=== PATIENT | female | born 1960 | race Caucasian/White ===

== ENCOUNTER 2017-01-21 06:56 | Emergency (ER) | payer BC ==
[~2017-01-21] VITALS: Ht 170.1 cm; Wt 106.6 kg
[~2017-01-21 06:56] MED LIST: AMOXICILLIN250 MG PO; ATIVAN1 MG PO; BACTRIM DS 8001 TA1 PO; CIPRO250 MG PO; CIPROFLOXACIN500 MG PO; EFFEXOR37.5 MG PO; HYDROCODONE PO; IBUPROFEN200 M2 PO; MOTRIN800 MG PO; PAXIL10 MG PO; PAXIL20 MG PO; XANAX0.25 MG PO
[2017-01-21 07:40] LABS: BASO % 0.7 % (0.0-1.0); EOS # 0.4 10*3/uL (0.0-0.4); EOS % 6.6 % (1.0-4.0); HEMATOCRIT 40.3 % (37.0-47.0); HEMOGLOBIN 13.1 g/dl (12.0-16.0); LYMPH # 1.8 10*3/uL (1.3-4.4); LYMPH % 32.3 % (27.0-41.0); MEAN CELL VOLUME 87.8 fl (81.0-99.0); MEAN CORPUSCULAR HGB 28.5 pg (27.0-31.0); MEAN CORPUSCULAR HGB CONC 32.5 g/dl (33.0-37.0); MEAN PLATELET VOLUME 9.1 fl (9.6-12.3); MONO # 0.5 10*3/uL (0.1-1.0); MONO % 9.5 % (3.0-9.0); NEUT # 2.8 10*3/uL (2.3-7.9); NEUT % 50.7 % (47.0-73.0); PLATELET COUNT AUTOMATED 290 10*3/uL (130-400); RED BLOOD COUNT 4.59 10*6/uL (4.10-5.10); RED CELL DISTRI WIDTH 12.7 % (0-14.5); WHITE BLOOD COUNT 5.6 10*3/uL (4.8-10.8)
[2017-01-21 08:02] LABS: BILIRUBIN NEGATIVE (NEGATIVE); BLOOD 1+ (NEGATIVE); CLARITY CLEAR (CLEAR); COLOR YELLOW (YELLOW); GLUCOSE NEGATIVE (NEGATIVE); KETONE NEGATIVE (NEGATIVE); LEUKO ESTERASE 1+ (NEGATIVE); NITRITE NEGATIVE (NEGATIVE); PH 5.5 (5.0-9.0); SPECIFIC GRAVITY 1.025 (1.005-1.030); UROBILINOGEN 0.2 E.U./dl (0.2-1.0)
[2017-01-21 08:05] LABS: ALBUMIN 3.4 gm/dl (3.1-4.5); ALKALINE PHOSPHATASE 61 U/L (45-117); BUN 15 mg/dl (7-24); CHLORIDE 105 mmol/L (98-107); CREATININE 0.87 mg/dL (0.55-1.02); POTASSIUM 4.1 mmol/L (3.5-5.1); SGOT/AST 13 IU/L (3-35); SGPT/ALT 40 U/L (12-78); SODIUM 139 mmol/L (136-145); TOTAL PROTEIN 7.3 gm/dL (6.4-8.2)
[2017-01-21 08:19] LABS: BACTERIA TRACE; EPITHELIAL CELLS 18-20
== END 2017-01-21 08:40 | disposition home or self-care (01) ==
LOC: ED 06:56
PROVIDERS: Emergency Medicine
DX: R53.83 Other fatigue (principal); M54.9 Dorsalgia, unspecified; Z88.6 Allergy status to analgesic agent; Z87.891 Personal history of nicotine dependence

== ENCOUNTER 2018-04-20 15:22 | Emergency (ER) | payer BC ==
--- NOTE | ~2018-04-20 | EKG ---
[place] ELECTROCARDIOGRAM REPORT NAME: SMITA LIGHT UNIT #: [id number] ROOM: DOCTOR: EPIPHANY DRAFT REPORT BIRTHDATE: [birth year] [facility] Test Date: 2018-04-20 Test Time: 15:57:37 Pat Name: SMITA LIGHT Department: Room: Gender: F Investment Broker: April Willson : 1960 Requested By: TRAVON ORTEGA Order Number: [id number] Reading MD: Regine Van MD Measurements Intervals [place] Rate: 52 P: 40 NH: 177 QRS: -2 QRSD: 124 T: -8 QT: 441 QTc: 411 Interpretive Statements Sinus rhythm IVCD, consider atypical RBBB No previous ECG available for comparison Electronically Signed On 04-23-2018 4:33:04 PST by Regine Van MD CM:EKGRPT:ELECTROCARDIOGRAM REPORT [id number] TRAVON ORTEGA MD EPIPHDAO DRAFT REPORT TRAVON ORTEGA MD
[2018-04-20 16:00] LABS: BASO # 0.1 10*3/uL (0.0-0.1); BASO % 0.7 % (0.0-1.0); EOS # 0.4 10*3/uL (0.0-0.4); EOS % 5.9 % (1.0-4.0); HEMATOCRIT 43.2 % (37.0-47.0); HEMOGLOBIN 14.1 g/dl (12.0-16.0); LYMPH # 2.6 10*3/uL (1.3-4.4); LYMPH % 38.6 % (27.0-41.0); MEAN CELL VOLUME 87.8 fl (81.0-99.0); MEAN CORPUSCULAR HGB 28.7 pg (27.0-31.0); MEAN CORPUSCULAR HGB CONC 32.6 g/dl (33.0-37.0); MEAN PLATELET VOLUME 9.2 fl (9.6-12.3); MONO # 0.8 10*3/uL (0.1-1.0); MONO % 11.7 % (3.0-9.0); NEUT # 2.9 10*3/uL (2.3-7.9); PLATELET COUNT AUTOMATED 269 10*3/uL (130-400); RED BLOOD COUNT 4.92 10*6/uL (4.10-5.10); RED CELL DISTRI WIDTH 12.5 % (0-14.5); WHITE BLOOD COUNT 6.8 10*3/uL (4.8-10.8)
[2018-04-20 16:08] LABS: ACT PARTIAL THROMBO TIME 24.3 SECONDS (20.8-31.5)
[2018-04-20 16:19] LABS: ALBUMIN 3.5 gm/dl (3.1-4.5); ALKALINE PHOSPHATASE 67 U/L (45-117); BUN 14 mg/dl (7-24); CHLORIDE 104 mmol/L (98-107); CREATININE 0.92 mg/dL (0.55-1.02); POTASSIUM 4.2 mmol/L (3.5-5.1); SGOT/AST 19 IU/L (3-35); SGPT/ALT 31 U/L (12-78); SODIUM 139 mmol/L (136-145); TOTAL PROTEIN 7.7 gm/dL (6.4-8.2)
[2018-04-20 16:21] LABS: TROPONIN I < 0.015 ng/ml (<0.045)
[2018-04-20 16:23] LABS: BILIRUBIN NEGATIVE (NEGATIVE); BLOOD TRACE-INTACT (NEGATIVE); CLARITY SL CLOUDY (CLEAR); COLOR YELLOW (YELLOW); GLUCOSE NEGATIVE (NEGATIVE); KETONE NEGATIVE (NEGATIVE); LEUKO ESTERASE 1+ (NEGATIVE); NITRITE NEGATIVE (NEGATIVE); SPECIFIC GRAVITY 1.025 (1.005-1.030); UROBILINOGEN 0.2 E.U./dl (0.2-1.0)
[2018-04-20 16:34] LABS: RBC 0-2 rbc/hpf (0-2)
[2018-04-20 16:35] LABS: BACTERIA 2+
[2018-04-20] MEDS ORDERED: Meclizine25 MG PO (16:52)
== END 2018-04-20 16:57 | disposition home or self-care (01) ==
LOC: ED 15:22
PROVIDERS: Emergency Medicine
DX: R42 Dizziness and giddiness (principal); R00.1 Bradycardia, unspecified; Z88.6 Allergy status to analgesic agent

== ENCOUNTER 2020-01-17 18:22 | Emergency (ER) | payer BC ==
[~2020-01-17] VITALS: Ht 172.7 cm; Wt 113.4 kg
[~2020-01-17 18:22] MED LIST changes: +Meclizine25 MG PO
== END 2020-01-17 20:52 | disposition home or self-care (01) ==
LOC: ED 18:22
DX: M25.532 Pain in left wrist (principal); Z88.8 Allergy status to other drugs, medicaments and biological substances; Z79.899 Other long term (current) drug therapy

== ENCOUNTER 2021-10-08 19:00 | Emergency (ER) | payer BC | END 2021-10-08 20:55 | disposition home or self-care (01) | LOC: ED 19:00 | DX: M25.562 Pain in left knee (principal); Z88.6 Allergy status to analgesic agent ==

== ENCOUNTER 2024-10-22 19:08 | Emergency (ER) | payer BC ==
[~2024-10-22] VITALS: Ht 172.7 cm; Wt 104.3 kg
[~2024-10-22 19:08] MED LIST changes: +LISINOPRIL10 M1 PO; +OMNICEF300 MG PO
[2024-10-22 19:39] LABS: BASO # 0.0 10*3/uL (0.0-0.1); BASO % 0.5 % (0.0-1.0); EOS # 0.3 10*3/uL (0.0-0.4); EOS % 3.1 % (1.0-4.0); MEAN CELL VOLUME 91.4 fl (81.0-99.0); MEAN CORPUSCULAR HGB 29.3 pg (27.0-31.0); MEAN PLATELET VOLUME 9.2 fl (9.6-12.3); MONO # 0.7 10*3/uL (0.1-1.0); MONO % 9.0 % (3.0-9.0); NEUT # 4.2 10*3/uL (2.3-7.9); NEUT % 52.4 % (47.0-73.0); NUCLEATED RED BLOOD CELL 0.0 % (0.0-0.0); NUCLEATED RED BLOOD CELL 0.0 10*3/uL (0.0-0.0); PLATELET COUNT AUTOMATED 262 10*3/uL (130-400); RED CELL DISTRI WIDTH 12.5 % (0-14.5)
[2024-10-22 20:13] LABS: BUN 22 mg/dl (9-23)
== END 2024-10-22 21:44 | disposition home or self-care (01) ==
LOC: ED 19:08
PROVIDERS: Internal Medicine
DX: R07.89 Other chest pain (principal); N18.31 Chronic kidney disease, stage 3a; F41.9 Anxiety disorder, unspecified; F32.A Depression, unspecified; Z98.890 Other specified postprocedural states; Z88.8 Allergy status to other drugs, medicaments and biological substances

== ENCOUNTER → 2024-12-07 | Outpatient (CLI) | payer BC ==
[2024-12-07 09:05] LABS: BASO # 0.1 10*3/uL (0.0-0.1); BASO % 0.8 % (0.0-1.0); EOS # 0.4 10*3/uL (0.0-0.4); EOS % 6.1 % (1.0-4.0); MEAN CELL VOLUME 90.0 fl (81.0-99.0); MEAN CORPUSCULAR HGB 29.1 pg (27.0-31.0); MEAN PLATELET VOLUME 9.4 fl (9.6-12.3); MONO # 0.7 10*3/uL (0.1-1.0); MONO % 10.5 % (3.0-9.0); NEUT # 2.9 10*3/uL (2.3-7.9); NEUT % 43.2 % (47.0-73.0); NUCLEATED RED BLOOD CELL 0.0 % (0.0-0.0); NUCLEATED RED BLOOD CELL 0.0 10*3/uL (0.0-0.0); PLATELET COUNT AUTOMATED 263 10*3/uL (130-400); RED CELL DISTRI WIDTH 12.5 % (0-14.5)
[2024-12-07 09:50] LABS: VITAMIN D, 25-HYDROXY 37.7 ng/mL (30-100)
[2024-12-07 09:51] LABS: BUN 20 mg/dl (9-23); FREE T4 1.01 ng/dl (0.89-1.76); LDL CHOLESTEROL 140 mg/dL (9-159); SGPT/ALT 24 U/L (5-49)
== END | disposition home or self-care (01) ==
LOC: ORTHO 02:35 → LAB 02:35 → ORTHO 11:14
PROVIDERS: Internal Medicine; ATTEND Orthopaedic Surgery
DX: M25.561 Pain in right knee (principal); I10 Essential (primary) hypertension; E78.2 Mixed hyperlipidemia; E53.9 Vitamin B deficiency, unspecified; E55.9 Vitamin D deficiency, unspecified; R79.82 Elevated C-reactive protein (CRP); R53.83 Other fatigue